=== PATIENT | male | born 1945 | race Caucasian/White ===

== ENCOUNTER 2016-09-12 07:56 | Day surgery (SDC) | payer MEDICARE, OTHER ==
[~2016-09-12 07:56] MED LIST: FENTANYL CITRATE INJ/PF 100 MCG/2 ML AMPUL ONE; KETOROLAC TROMETHAMINE 0.45% 4 DROP/0.4 ML DROPERETTE OS PRN; MIDAZOLAM 2 MG/2 ML INJ ONE; TETRACAINE HCL 0.5% OPH SOLN 0.6 ML DROPERETTE OS PRN
[2016-09-12] MEDS: TETRACAINE HCL 0.5% OPH SOLN 2 ML OS PRN ×3 (08:45→09:23)
[2016-09-12] MEDS: TROPICAMIDE 1% OPH SOLN 3 ML OS PRN ×3 (08:46→09:12)
[2016-09-12] MEDS: CYCLOPENTOLATE 0.2%/PHENYLEPHRINE 1% OPH SOLN 2 ML OS PRN ×3 (08:46→09:12)
[2016-09-12] MEDS: BESIFLOXACIN HCL 0.6% OPH SUSP 5 ML BOTTLE OS PRN ×4 (08:47→10:02)
[2016-09-12] MEDS ORDERED: LIDOCAINE 1% INJ-PF (10 MG/ML) 30 ML SDV ONE (09:09)
[2016-09-12] MEDS ORDERED: TRYPAN BLUE 0.06 % OPH SOLN 0.5 ML DISP.SYRIN ONE (09:09)
[2016-09-12] MEDS ORDERED: PHENYLEPHRINE/KETOROLAC 1%-0.3% 4 ML VIAL ONE (09:09)
[2016-09-12] MEDS ORDERED: CHONDR SU A NA/HYALUR INTRAOC KIT (SURGICARE) ONE (09:10)
--- NOTE | 2016-09-12 21:33 | [facility] OPERATIVE REPORT E ---
[facility] Operative Report NAME: MICHAEL SIERRA AGE: 71Y DATE OF SURGERY: ROOM: PREOPERATIVE DIAGNOSES: 1. CATARACT, LEFT EYE. 2. PUPIL MYOSIS, LEFT EYE. POSTOPERATIVE DIAGNOSIS: CATARACT, LEFT EYE. OPERATION: Complex cataract extraction with insertion of a toric IOL and insertion of a Malyugin ring due to very myotic pupil. SURGEON: YOSELIN MELGAR M.D. ANESTHESIA: Topical. LENS: 22.0 SN6AT4 lens rotated to 176 degrees. PROCEDURE: After obtaining appropriate consent, the patient's left eye was prepped and draped in sterile fashion as well as the surgeon in a sterile manner and cataract surgery was started. First a paracentesis blade was used to make a small side-port incision. Viscoelastic was used to inflate the anterior chamber. Next a 2.4 mm incision was made with the paracentesis blade. A continuous capsulorrhexis incision was made using a cystotome and Utrata forceps. Following this hydrodissection was carried out to make the lens fully loose and mobile and it was rotated 90 degrees. Following this, a nipsym-stf-yrcmmgq technique was used to phacoemulsify the lens with a CDE of 6.99. The remaining cortex was removed with irrigation/aspiration. Provisc was instilled into the capsular bag to inflate the bag. A SN6AT4 22.0 lens was placed. The remaining viscoelastic material was removed with irrigation/aspiration. Following this, a 10-0 nylon suture was used to close the incision and it was found to be watertight. Vigamox was instilled in the eye and a protective shield was placed over the eye. The patient returned to the postoperative recovery in stable condition. Prior to making the capsulorrhexis, a Malyugin ring was inserted due to a very myotic pupil. This was removed at the end of the case. DICTATING PHYSICIAN: YOSELIN MELGAR M.D. [id number] PHY#: [id number] ID: [id number] JOB#: [id number] ACCT: [id number] cc:YOSELIN MELGAR M.D. > [facility]
--- NOTE | 2016-09-16 13:32 | DISCHARGE SUMMARY E ---
Discharge Summary NAME: MICHAEL SIERRA : 1945 AGE: 71Y ADMITTED: 09/12/2016 DISCHARGED: 09/12/2016 This is a 71-year-old male who underwent cataract extraction of his left eye. DIAGNOSES: 1. Cataract left eye. 2. Pupil myosis of the left eye. He had a complex cataract extraction with insertion of a toric IOL and use of a Malyugin ring due to very myotic pupil. He underwent surgery. Still having trouble seeing road signs and people's faces. He should be on a regular diet. no heavy lifting. Besivance Illevro Durezol at 3:00 p.m. and 8: 00 p.m and sleep with a rigid sheild and I will see him for a 1 day post operative. DICTATING PHYSICIAN: YOSELIN MELGAR M.D. [id number] PHY#: [id number] ID: [id number] JOB#: [id number] ACCT: [id number] cc:YOSELIN MELGAR M.D. > [facility]
== END 2016-09-12 10:51 | disposition home or self-care (01) ==
LOC: SC 07:56
PROVIDERS: ATTEND Internal Medicine
PROC: 08RK3JZ Replacement of Left Lens with Synthetic Substitute, Percutaneous Approach (ICD-10-PCS; principal; 2016-09-12 09:30)
DX: H25.812 Combined forms of age-related cataract, left eye (principal); H57.03 Miosis; I10 Essential (primary) hypertension; E11.9 Type 2 diabetes mellitus without complications; Z79.899 Other long term (current) drug therapy; Z79.84 Long term (current) use of oral hypoglycemic drugs
CPT/HCPCS: 66984; 82962; V2787; J2250; J3490 ×2; A9270; J3010; C9447; 142